=== PATIENT | female | born 1960 | race Caucasian/White ===

== ENCOUNTER 2018-09-02 16:14 | Inpatient (IN) | payer MEDICAID ==
[~2018-09-02] VITALS: Ht 157.5 cm; Wt 59.9 kg
[2018-09-02] MEDS ORDERED: KETOROLAC 30MG/ML VIAL IV ONE (16:45)
[2018-09-02 20:18] LABS: BASOPHILS % 0.1 % (0.0-2.0); EOSINOPHILS % 0.9 % (0.0-5.0); HEMATOCRIT. 43.7 % (36.0-48.0); HEMOGLOBIN. 14.9 g/dL (12.0-16.0); LYMPHOCYTES % 27.4 % (20.0-50.0); MEAN CORPUSCULAR HEMOGLOBIN 29.1 pg (28.0-32.0); MEAN CORPUSCULAR VOLUME 85.5 fL (81.0-99.0); MEAN PLATELET VOLUME 10.2 fl (7.4-10.4); NEUTROPHILS % 65.6 % (40.0-76.0); PLATELET 180 x1000/uL (130-400); RED BLOOD CELL COUNT 5.11 mill/uL (4.2-5.4); RED CELL DISTRIBUTION WIDTH 13.8 % (11.6-14.6)
[2018-09-02 20:23] LABS: CHLORIDE 98 mEq/L (98-107); INR 1.2; PROTHROMBIN TIME 11.6 sec (9.1-11.1)
[2018-09-02 22:38] VITALS: BP 126/71
[2018-09-03] MEDS ORDERED: ABIL10 PO (00:07)
[2018-09-03] MEDS ORDERED: TRAZ-212 PO (00:20)
[2018-09-03] MEDS ORDERED: GABA-529 PO (00:20)
[2018-09-03] MEDS ORDERED: HALO10TA13 PO (00:20)
[2018-09-03] MEDS ORDERED: ASPI-1159 PO (00:20)
[2018-09-03] MEDS ORDERED: RIVA20TA PO (00:20)
[2018-09-03] MEDS ORDERED: SERT-112 PO (00:20)
[2018-09-03] MEDS ORDERED: ATOR10TA69 PO (00:20)
[2018-09-03] MEDS ORDERED: METF-415 PO (00:20)
[2018-09-03] MEDS ORDERED: LORA1TAB PO (00:20)
[2018-09-03] MEDS ORDERED: SITA100T11 PO (00:20)
[2018-09-03] MEDS: BLOOD SUGAR DIAGNOSTIC STRIP TEST SCH ×4 (07:48→21:02)
[2018-09-03 08:00] VITALS: BP 117/58
[2018-09-03] MEDS: ASPIRIN 81MG TABLET PO SCH (08:19)
[2018-09-03] MEDS: LINAGLIPTIN 5MG TABLET PO SCH (08:19)
[2018-09-03] MEDS: METFORMIN HCL 500MG TABLET PO SCH ×2 (08:19→17:04)
[2018-09-03] MEDS: SERTRALINE HCL 100MG TABLET PO SCH (08:19)
[2018-09-03] MEDS: GABAPENTIN 100MG CAPSULE PO SCH ×3 (08:19→17:04)
[2018-09-03] MEDS: LORAZEPAM 1MG TABLET PO SCH ×2 (08:19→17:04)
[2018-09-03] MEDS ORDERED: MEDICATION NOT ON FORMULARY EA (Sitagliptin Phosphate (Januvia) 100 MG) PO SCH (09:00)
[2018-09-03] MEDS ORDERED: MEDICATION NOT ON FORMULARY EA (Lorazepam 1 MG) PO SCH (09:00)
[2018-09-03] MEDS ORDERED: MEDICATION NOT ON FORMULARY EA (Gabapentin 100 MG) PO SCH (09:00)
[2018-09-03] MEDS ORDERED: MORPHINE SULFATE 4 MG/ML CPJ (NOT FOR IM USE) IV PRN (10:00)
[2018-09-03] MEDS: HYDROCODONE/ACETAMINOPHEN 5/325MG TABLET PO PRN (10:44)
[2018-09-03 12:00] VITALS: BP 102/50
[2018-09-03 16:00] VITALS: BP 101/49
[2018-09-03 20:00] VITALS: BP 122/54
[2018-09-03] MEDS: ATORVASTATIN CALCIUM 10MG TABLET PO SCH (20:59)
[2018-09-03] MEDS: HALOPERIDOL 5MG TABLET PO SCH (20:59)
[2018-09-03] MEDS ORDERED: MEDICATION NOT ON FORMULARY EA (Haloperidol 10 MG) PO SCH (21:00)
[2018-09-03] MEDS ORDERED: MEDICATION NOT ON FORMULARY EA (Trazodone Hcl 50 MG) PO SCH (21:00)
[2018-09-03] MEDS: ARIPIPRAZOLE 10MG TABLET PO SCH (21:00)
[2018-09-03] MEDS: TRAZODONE HCL 50MG TABLET PO SCH (21:00)
[2018-09-04] VITALS: BP 118/52
[2018-09-04 04:00] VITALS: BP 130/61
[2018-09-04] MEDS: HYDROCODONE/ACETAMINOPHEN 5/325MG TABLET PO PRN (05:33)
[2018-09-04] MEDS: BLOOD SUGAR DIAGNOSTIC STRIP TEST SCH ×4 (06:51→21:50)
[2018-09-04 08:00] VITALS: BP 111/52
[2018-09-04 08:03] LABS: BASOPHILS % 0.2 % (0.0-2.0); EOSINOPHILS % 1.5 % (0.0-5.0); HEMATOCRIT. 37.6 % (36.0-48.0); HEMOGLOBIN. 12.8 g/dL (12.0-16.0); LYMPHOCYTES % 25.1 % (20.0-50.0); MEAN CORPUSCULAR HEMOGLOBIN 28.9 pg (28.0-32.0); MEAN CORPUSCULAR VOLUME 85.2 fL (81.0-99.0); MEAN PLATELET VOLUME 9.7 fl (7.4-10.4); MONOCYTES % 7.6 % (2.0-8.0); NEUTROPHILS % 65.6 % (40.0-76.0); PLATELET 148 x1000/uL (130-400); RED BLOOD CELL COUNT 4.41 mill/uL (4.2-5.4); RED CELL DISTRIBUTION WIDTH 13.5 % (11.6-14.6)
[2018-09-04] MEDS: LORAZEPAM 1MG TABLET PO SCH ×2 (08:35→16:04)
[2018-09-04] MEDS: GABAPENTIN 100MG CAPSULE PO SCH ×3 (08:35→17:42)
[2018-09-04] MEDS: SERTRALINE HCL 100MG TABLET PO SCH (08:35)
[2018-09-04] MEDS: ASPIRIN 81MG TABLET PO SCH (08:35)
[2018-09-04] MEDS: LINAGLIPTIN 5MG TABLET PO SCH (08:35)
[2018-09-04] MEDS: METFORMIN HCL 500MG TABLET PO SCH ×2 (08:35→17:42)
[2018-09-04 08:39] LABS: CHLORIDE 103 mEq/L (98-107)
[2018-09-04 12:00] VITALS: BP 110/63
[2018-09-04 16:00] VITALS: BP 113/64
[2018-09-04 20:00] VITALS: BP 112/51
[2018-09-04] MEDS: ARIPIPRAZOLE 10MG TABLET PO SCH (21:35)
[2018-09-04] MEDS: ATORVASTATIN CALCIUM 10MG TABLET PO SCH (21:35)
[2018-09-04] MEDS: HALOPERIDOL 5MG TABLET PO SCH (21:35)
[2018-09-04] MEDS: TRAZODONE HCL 50MG TABLET PO SCH (21:35)
[2018-09-05] VITALS: BP 104/55
[2018-09-05 04:00] VITALS: BP 105/50
[2018-09-05] MEDS: BLOOD SUGAR DIAGNOSTIC STRIP TEST SCH ×4 (06:31→21:00)
[2018-09-05 08:00] VITALS: BP 116/55
[2018-09-05] MEDS: METFORMIN HCL 500MG TABLET PO SCH ×2 (09:09→17:08)
[2018-09-05] MEDS: LORAZEPAM 1MG TABLET PO SCH ×2 (09:10→17:08)
[2018-09-05] MEDS: ASPIRIN 81MG TABLET PO SCH (09:10)
[2018-09-05] MEDS: GABAPENTIN 100MG CAPSULE PO SCH ×3 (09:10→17:08)
[2018-09-05] MEDS: LINAGLIPTIN 5MG TABLET PO SCH (09:10)
[2018-09-05] MEDS: SERTRALINE HCL 100MG TABLET PO SCH (09:14)
[2018-09-05 12:00] VITALS: BP 114/48
[2018-09-05 16:00] VITALS: BP 116/45
[2018-09-05] MEDS: HYDROCODONE/ACETAMINOPHEN 5/325MG TABLET PO PRN (18:35)
[2018-09-05 20:00] VITALS: BP 117/55
[2018-09-05] MEDS: ARIPIPRAZOLE 10MG TABLET PO SCH (20:55)
[2018-09-05] MEDS: ATORVASTATIN CALCIUM 10MG TABLET PO SCH (20:55)
[2018-09-05] MEDS: TRAZODONE HCL 50MG TABLET PO SCH (20:56)
[2018-09-05] MEDS: HALOPERIDOL 5MG TABLET PO SCH (20:56)
[2018-09-06] VITALS: BP 104/57
[2018-09-06 04:00] VITALS: BP 109/46
[2018-09-06] MEDS: BLOOD SUGAR DIAGNOSTIC STRIP TEST SCH ×4 (06:55→21:00)
[2018-09-06 08:00] VITALS: BP 106/37
[2018-09-06] MEDS: LINAGLIPTIN 5MG TABLET PO SCH (08:25)
[2018-09-06] MEDS: GABAPENTIN 100MG CAPSULE PO SCH ×3 (08:25→17:57)
[2018-09-06] MEDS: SERTRALINE HCL 100MG TABLET PO SCH (08:25)
[2018-09-06] MEDS: LORAZEPAM 1MG TABLET PO SCH ×2 (08:26→17:58)
[2018-09-06] MEDS: TRAZODONE HCL 50MG TABLET PO SCH (08:26)
[2018-09-06] MEDS: ASPIRIN 81MG TABLET PO SCH (08:54)
[2018-09-06] MEDS: METFORMIN HCL 500MG TABLET PO SCH ×2 (09:21→18:21)
[2018-09-06 12:00] VITALS: BP 149/64
[2018-09-06 12:07] LABS: BASOPHILS % 0.2 % (0.0-2.0); EOSINOPHILS % 2.6 % (0.0-5.0); HEMATOCRIT. 40.3 % (36.0-48.0); HEMOGLOBIN. 13.8 g/dL (12.0-16.0); LYMPHOCYTES % 24.5 % (20.0-50.0); MEAN CORPUSCULAR HEMOGLOBIN 28.8 pg (28.0-32.0); MEAN CORPUSCULAR VOLUME 84.5 fL (81.0-99.0); MEAN PLATELET VOLUME 9.4 fl (7.4-10.4); MONOCYTES % 5.4 % (2.0-8.0); NEUTROPHILS % 67.3 % (40.0-76.0); PLATELET 171 x1000/uL (130-400); RED BLOOD CELL COUNT 4.77 mill/uL (4.2-5.4); RED CELL DISTRIBUTION WIDTH 13.7 % (11.6-14.6)
[2018-09-06 12:44] LABS: CHLORIDE 102 mEq/L (98-107)
[2018-09-06 16:00] VITALS: BP 115/56
[2018-09-06] MEDS: HYDROCODONE/ACETAMINOPHEN 5/325MG TABLET PO PRN (17:01)
[2018-09-06 20:00] VITALS: BP 114/58
[2018-09-06] MEDS: ARIPIPRAZOLE 10MG TABLET PO SCH (20:59)
[2018-09-06] MEDS: HALOPERIDOL 5MG TABLET PO SCH (20:59)
[2018-09-06] MEDS: ATORVASTATIN CALCIUM 10MG TABLET PO SCH (20:59)
[2018-09-07] VITALS: BP 110/54
[2018-09-07 04:00] VITALS: BP 114/62
[2018-09-07] MEDS: BLOOD SUGAR DIAGNOSTIC STRIP TEST SCH ×4 (07:20→21:00)
[2018-09-07 08:00] VITALS: BP 107/61
[2018-09-07] MEDS: LORAZEPAM 1MG TABLET PO SCH ×2 (09:00→18:55)
[2018-09-07] MEDS: LINAGLIPTIN 5MG TABLET PO SCH (11:45)
[2018-09-07] MEDS: GABAPENTIN 100MG CAPSULE PO SCH ×3 (11:45→18:55)
[2018-09-07] MEDS: SERTRALINE HCL 100MG TABLET PO SCH (11:45)
[2018-09-07] MEDS: METFORMIN HCL 500MG TABLET PO SCH ×2 (11:45→18:55)
[2018-09-07] MEDS: ASPIRIN 81MG TABLET PO SCH (11:46)
[2018-09-07 12:00] VITALS: BP 110/57
[2018-09-07 16:00] VITALS: BP 114/54
[2018-09-07 20:00] VITALS: BP 119/61
[2018-09-07] MEDS: TRAZODONE HCL 50MG TABLET PO SCH (22:02)
[2018-09-07] MEDS: ATORVASTATIN CALCIUM 10MG TABLET PO SCH (22:02)
[2018-09-07] MEDS: ARIPIPRAZOLE 10MG TABLET PO SCH (22:02)
[2018-09-07] MEDS: HYDROCODONE/ACETAMINOPHEN 5/325MG TABLET PO PRN (22:08)
[2018-09-07] MEDS: HALOPERIDOL 5MG TABLET PO SCH (22:08)
[2018-09-08] VITALS: BP 116/59
[2018-09-08 04:00] VITALS: BP 109/63
[2018-09-08] MEDS: BLOOD SUGAR DIAGNOSTIC STRIP TEST SCH ×4 (07:39→20:09)
[2018-09-08 08:00] VITALS: BP 112/54
[2018-09-08] MEDS: METFORMIN HCL 500MG TABLET PO SCH ×2 (08:14→16:49)
[2018-09-08] MEDS: SERTRALINE HCL 100MG TABLET PO SCH (08:29)
[2018-09-08] MEDS: GABAPENTIN 100MG CAPSULE PO SCH ×3 (08:29→16:48)
[2018-09-08] MEDS: LORAZEPAM 1MG TABLET PO SCH (08:29)
[2018-09-08] MEDS: ASPIRIN 81MG TABLET PO SCH (08:29)
[2018-09-08] MEDS: LINAGLIPTIN 5MG TABLET PO SCH (08:30)
[2018-09-08 12:00] VITALS: BP 103/62
[2018-09-08] MEDS ORDERED: HYDROCODONE/ACETAMINOPHEN 5/325MG TABLET PO PRN (12:30)
[2018-09-08 16:00] VITALS: BP 117/50
[2018-09-08 20:00] VITALS: BP 115/58
[2018-09-08] MEDS: ARIPIPRAZOLE 10MG TABLET PO SCH (20:01)
[2018-09-08] MEDS: ATORVASTATIN CALCIUM 10MG TABLET PO SCH (20:01)
[2018-09-08] MEDS: TRAZODONE HCL 50MG TABLET PO SCH (20:01)
[2018-09-08] MEDS: HALOPERIDOL 5MG TABLET PO SCH (21:29)
[2018-09-09] VITALS: BP 110/54
[2018-09-09 04:00] VITALS: BP 111/50
[2018-09-09] MEDS: BLOOD SUGAR DIAGNOSTIC STRIP TEST SCH ×4 (06:44→20:24)
[2018-09-09 08:00] VITALS: BP 115/50
[2018-09-09] MEDS: LINAGLIPTIN 5MG TABLET PO SCH (09:10)
[2018-09-09] MEDS: ASPIRIN 81MG TABLET PO SCH (09:10)
[2018-09-09] MEDS: GABAPENTIN 100MG CAPSULE PO SCH ×3 (09:10→18:35)
[2018-09-09] MEDS: METFORMIN HCL 500MG TABLET PO SCH ×2 (09:10→18:35)
[2018-09-09] MEDS: SERTRALINE HCL 100MG TABLET PO SCH (09:12)
[2018-09-09 12:00] VITALS: BP 127/49
[2018-09-09] MEDS ORDERED: MORPHINE SULFATE 4 MG/ML CPJ (NOT FOR IM USE) IV NR (13:15)
[2018-09-09 16:00] VITALS: BP 122/50
[2018-09-09 16:11] LABS: BASOPHILS % 0.2 % (0.0-2.0); EOSINOPHILS % 2.2 % (0.0-5.0); HEMATOCRIT. 37.9 % (36.0-48.0); HEMOGLOBIN. 12.9 g/dL (12.0-16.0); LYMPHOCYTES % 28.7 % (20.0-50.0); MEAN CORPUSCULAR HEMOGLOBIN 28.9 pg (28.0-32.0); MEAN CORPUSCULAR VOLUME 84.9 fL (81.0-99.0); MEAN PLATELET VOLUME 9.7 fl (7.4-10.4); NEUTROPHILS % 62.9 % (40.0-76.0); PLATELET 184 x1000/uL (130-400); RED BLOOD CELL COUNT 4.46 mill/uL (4.2-5.4); RED CELL DISTRIBUTION WIDTH 13.8 % (11.6-14.6)
[2018-09-09 16:14] LABS: CHLORIDE 101 mEq/L (98-107)
[2018-09-09 20:00] VITALS: BP 120/52
[2018-09-09] MEDS: TRAZODONE HCL 50MG TABLET PO SCH (20:25)
[2018-09-09] MEDS: HALOPERIDOL 5MG TABLET PO SCH (20:25)
[2018-09-09] MEDS: ATORVASTATIN CALCIUM 10MG TABLET PO SCH (20:25)
[2018-09-09] MEDS: ARIPIPRAZOLE 10MG TABLET PO SCH (20:48)
[2018-09-10] VITALS: BP 111/45
[2018-09-10 04:00] VITALS: BP 124/51
[2018-09-10] MEDS: BLOOD SUGAR DIAGNOSTIC STRIP TEST SCH ×2 (05:44→12:00)
[2018-09-10] MEDS: METFORMIN HCL 500MG TABLET PO SCH (07:50)
[2018-09-10 08:00] VITALS: BP 101/49
[2018-09-10] MEDS: ASPIRIN 81MG TABLET PO SCH (08:50)
[2018-09-10] MEDS: LINAGLIPTIN 5MG TABLET PO SCH (08:50)
[2018-09-10] MEDS: GABAPENTIN 100MG CAPSULE PO SCH ×2 (08:50→12:00)
[2018-09-10] MEDS: SERTRALINE HCL 100MG TABLET PO SCH (08:50)
[2018-09-10 10:30] VITALS: BP 101/49
== END 2018-09-10 13:05 | DRG 342 ==
LOC: ER 16:19 → 6EST 19:45 → ENRESERV 20:18 → CANRESERV 20:18
PROVIDERS: ADMIT Internal Medicine; ATTEND Internal Medicine
DX: S82.52XA Displaced fracture of medial malleolus of left tibia, initial encounter for closed fracture (principal); F20.9 Schizophrenia, unspecified; E11.9 Type 2 diabetes mellitus without complications; F31.9 Bipolar disorder, unspecified; M94.0 Chondrocostal junction syndrome [Tietze]; W01.0XXA Fall on same level from slipping, tripping and stumbling without subsequent striking against object, initial encounter; Y93.89 Activity, other specified; Y92.89 Other specified places as the place of occurrence of the external cause; Y99.8 Other external cause status
CPT/HCPCS: 36415; 70551; 71045; 73590; 73610; 73630; 80048; 82962; 83036; 84484; 93005; 93306; 96374; 97163; 97166; 97530; 97535; 99285; A6261; J1630; J1885; J2270

== ENCOUNTER 2018-09-25 16:19 | Inpatient (IN) | payer MEDICAID ==
[~2018-09-25] VITALS: Ht 162.6 cm; Wt 56.2 kg
[~2018-09-25 16:19] MED LIST: ABIL10 PO; ASPI-1159 PO; ATOR10TA69 PO; GABA-529 PO; HALO10TA13 PO; LORA1TAB PO; METF-415 PO; RIVA20TA PO; SERT-112 PO; SITA100T11 PO; TRAZ-212 PO
[2018-09-25 19:16] LABS: BASOPHILS % 0.5 % (0.0-2.0); EOSINOPHILS % 1.1 % (0.0-5.0); HEMATOCRIT. 41.4 % (36.0-48.0); HEMOGLOBIN. 13.8 g/dL (12.0-16.0); LYMPHOCYTES % 23.6 % (20.0-50.0); MEAN CORPUSCULAR HEMOGLOBIN 28.4 pg (28.0-32.0); MEAN CORPUSCULAR VOLUME 84.9 fL (81.0-99.0); MEAN PLATELET VOLUME 9.8 fl (7.4-10.4); MONOCYTES % 5.6 % (2.0-8.0); NEUTROPHILS % 69.2 % (40.0-76.0); PLATELET 213 x1000/uL (130-400); RED BLOOD CELL COUNT 4.88 mill/uL (4.2-5.4); RED CELL DISTRIBUTION WIDTH 13.7 % (11.6-14.6)
[2018-09-25 19:23] LABS: CHLORIDE 103 mEq/L (98-107)
[2018-09-25 19:28] LABS: PARTIAL THROMBOPLASTIN TIME 23.6 sec (23.4-31.0); PROTHROMBIN TIME 10.5 sec (9.1-11.1)
[2018-09-25 19:30] LABS: HCG SCREEN NEGATIVE
[2018-09-25 20:24] LABS: CLARITY URINE CLEAR (CLEAR); COLOR URINE YELLOW (YELLOW); KETONES URINE NEGATIVE (NEGATIVE); LEUKOCYTE ESTERASE URINE TRACE (NEGATIVE); NITRITE URINE NEGATIVE (NEGATIVE); OCCULT BLOOD URINE NEGATIVE (NEGATIVE); PROTEIN URINE NEGATIVE (NEGATIVE); SPECIFIC GRAVITY URINE 1.008 (1.005-1.030); UROBILINOGEN URINE 0.2 E.U./dL (0.2-1.0)
[2018-09-25] MEDS ORDERED: IOHEXOL-350 100 ML BOTTLE ONE (21:54)
[2018-09-26 02:00] VITALS: BP 133/50
[2018-09-26 04:00] VITALS: BP 118/56
[2018-09-26] MEDS: HYDROCODONE/ACETAMINOPHEN 5/325MG TABLET PO PRN (07:06)
[2018-09-26 08:00] VITALS: BP 117/58
[2018-09-26] MEDS ORDERED: DEXTROSE 50% WATER 50ML SYRINGE IV PRN (08:00)
[2018-09-26] MEDS: ASPIRIN 81MG TABLET PO SCH (08:10)
[2018-09-26] MEDS: ARIPIPRAZOLE 10MG TABLET PO SCH (08:10)
[2018-09-26] MEDS: LORAZEPAM 1MG TABLET PO SCH ×2 (08:10→16:17)
[2018-09-26] MEDS: ONDANSETRON HCL 4MG/2ML INJ IV PRN (08:10)
[2018-09-26] MEDS: GABAPENTIN 100MG CAPSULE PO SCH ×3 (08:11→16:17)
[2018-09-26] MEDS ORDERED: MEDICATION NOT ON FORMULARY EA (Lorazepam 1 MG) PO SCH (09:00)
[2018-09-26] MEDS ORDERED: MEDICATION NOT ON FORMULARY EA (Gabapentin 100 MG) PO SCH (09:00)
[2018-09-26] MEDS: METFORMIN HCL 850MG TABLET PO SCH (09:20)
[2018-09-26] MEDS: SERTRALINE HCL 100MG TABLET PO SCH (09:22)
[2018-09-26] MEDS: BLOOD SUGAR DIAGNOSTIC STRIP TEST SCH ×3 (11:18→20:41)
[2018-09-26 12:00] VITALS: BP 125/54
[2018-09-26] MEDS: INSULIN LISPRO 100 UNITS/ML SUBCUT SCH ×3 (12:11→20:34)
[2018-09-26 12:18] LABS: BASOPHILS % 0.3 % (0.0-2.0); EOSINOPHILS % 1.9 % (0.0-5.0); HEMOGLOBIN. 14.1 g/dL (12.0-16.0); LYMPHOCYTES % 30.1 % (20.0-50.0); MEAN CORPUSCULAR HEMOGLOBIN 28.8 pg (28.0-32.0); MEAN CORPUSCULAR VOLUME 85.7 fL (81.0-99.0); MEAN PLATELET VOLUME 9.3 fl (7.4-10.4); MONOCYTES % 7.7 % (2.0-8.0); PLATELET 192 x1000/uL (130-400)
[2018-09-26 12:40] LABS: CHLORIDE 103 mEq/L (98-107)
[2018-09-26 16:00] VITALS: BP 123/74
[2018-09-26] MEDS: RIVAROXABAN 20 MG TABLET PO SCH (16:17)
[2018-09-26 20:00] VITALS: BP 102/48
[2018-09-26] MEDS: HALOPERIDOL 5MG TABLET PO SCH (20:41)
[2018-09-26] MEDS: TRAZODONE HCL 50MG TABLET PO SCH (20:42)
[2018-09-26] MEDS: ATORVASTATIN CALCIUM 10MG TABLET PO SCH (20:42)
[2018-09-26] MEDS ORDERED: MEDICATION NOT ON FORMULARY EA (Trazodone Hcl 50 MG) PO SCH (21:00)
[2018-09-26] MEDS ORDERED: MEDICATION NOT ON FORMULARY EA (Haloperidol 10 MG) PO SCH (21:00)
[2018-09-27] VITALS: BP 110/49
[2018-09-27 04:00] VITALS: BP 108/60
[2018-09-27] MEDS: BLOOD SUGAR DIAGNOSTIC STRIP TEST SCH ×4 (06:12→20:35)
[2018-09-27] MEDS: INSULIN LISPRO 100 UNITS/ML SUBCUT SCH ×4 (06:12→21:21)
[2018-09-27 08:00] VITALS: BP 107/63
[2018-09-27] MEDS: SERTRALINE HCL 100MG TABLET PO SCH (09:15)
[2018-09-27] MEDS: METFORMIN HCL 850MG TABLET PO SCH (09:15)
[2018-09-27] MEDS: ASPIRIN 81MG TABLET PO SCH (09:15)
[2018-09-27] MEDS: LORAZEPAM 1MG TABLET PO SCH ×2 (09:15→18:03)
[2018-09-27] MEDS: ARIPIPRAZOLE 10MG TABLET PO SCH (09:15)
[2018-09-27] MEDS: GABAPENTIN 100MG CAPSULE PO SCH ×3 (09:15→18:03)
[2018-09-27 12:00] VITALS: BP 110/65
[2018-09-27] MEDS: RIVAROXABAN 20 MG TABLET PO SCH (18:03)
[2018-09-27 20:00] VITALS: BP 120/42
[2018-09-27] MEDS: ATORVASTATIN CALCIUM 10MG TABLET PO SCH (20:34)
[2018-09-27] MEDS: TRAZODONE HCL 50MG TABLET PO SCH (20:34)
[2018-09-27] MEDS: HALOPERIDOL 5MG TABLET PO SCH (20:34)
[2018-09-28] VITALS: BP 116/51
[2018-09-28 04:00] VITALS: BP 91/43
[2018-09-28] MEDS: BLOOD SUGAR DIAGNOSTIC STRIP TEST SCH ×4 (06:44→21:18)
[2018-09-28 07:42] LABS: BASOPHILS % 0.3 % (0.0-2.0); EOSINOPHILS % 4.2 % (0.0-5.0); HEMATOCRIT. 37.3 % (36.0-48.0); HEMOGLOBIN. 12.5 g/dL (12.0-16.0); LYMPHOCYTES % 32.4 % (20.0-50.0); MEAN CORPUSCULAR HEMOGLOBIN 28.7 pg (28.0-32.0); MEAN CORPUSCULAR VOLUME 85.8 fL (81.0-99.0); MEAN PLATELET VOLUME 9.4 fl (7.4-10.4); MONOCYTES % 6.9 % (2.0-8.0); NEUTROPHILS % 56.2 % (40.0-76.0); PLATELET 165 x1000/uL (130-400); RED BLOOD CELL COUNT 4.35 mill/uL (4.2-5.4); RED CELL DISTRIBUTION WIDTH 13.8 % (11.6-14.6)
[2018-09-28 08:00] VITALS: BP 111/53
[2018-09-28 09:20] LABS: CHLORIDE 105 mEq/L (98-107)
[2018-09-28] MEDS: METFORMIN HCL 850MG TABLET PO SCH (09:44)
[2018-09-28] MEDS: GABAPENTIN 100MG CAPSULE PO SCH ×3 (09:44→17:48)
[2018-09-28] MEDS: ARIPIPRAZOLE 10MG TABLET PO SCH (09:45)
[2018-09-28] MEDS: LORAZEPAM 1MG TABLET PO SCH ×2 (09:45→17:48)
[2018-09-28] MEDS: SERTRALINE HCL 100MG TABLET PO SCH (09:45)
[2018-09-28] MEDS: ASPIRIN 81MG TABLET PO SCH (09:45)
[2018-09-28] MEDS: INSULIN LISPRO 100 UNITS/ML SUBCUT SCH ×3 (12:09→21:18)
[2018-09-28] MEDS: RIVAROXABAN 20 MG TABLET PO SCH (17:48)
[2018-09-28] MEDS: ATORVASTATIN CALCIUM 10MG TABLET PO SCH (20:47)
[2018-09-28] MEDS: TRAZODONE HCL 50MG TABLET PO SCH (20:47)
[2018-09-28] MEDS: HALOPERIDOL 5MG TABLET PO SCH (20:47)
[2018-09-29] MEDS: BLOOD SUGAR DIAGNOSTIC STRIP TEST SCH ×4 (06:21→21:00)
[2018-09-29] MEDS: INSULIN LISPRO 100 UNITS/ML SUBCUT SCH ×4 (06:30→22:23)
[2018-09-29 08:00] VITALS: BP 131/58
[2018-09-29] MEDS: GABAPENTIN 100MG CAPSULE PO SCH ×3 (09:15→17:19)
[2018-09-29] MEDS: ASPIRIN 81MG TABLET PO SCH (09:15)
[2018-09-29] MEDS: LORAZEPAM 1MG TABLET PO SCH ×2 (09:15→17:19)
[2018-09-29] MEDS: SERTRALINE HCL 100MG TABLET PO SCH (09:15)
[2018-09-29] MEDS: METFORMIN HCL 850MG TABLET PO SCH (09:15)
[2018-09-29] MEDS: ARIPIPRAZOLE 10MG TABLET PO SCH (09:15)
[2018-09-29 12:00] VITALS: BP 144/66
[2018-09-29 16:00] VITALS: BP 114/65
[2018-09-29] MEDS: RIVAROXABAN 20 MG TABLET PO SCH (17:19)
[2018-09-29] MEDS: KETOROLAC 30MG/ML VIAL IV PRN (17:57)
[2018-09-29] MEDS: HYDROCODONE/ACETAMINOPHEN 5/325MG TABLET PO PRN (19:50)
[2018-09-29 20:00] VITALS: BP 109/65
[2018-09-29] MEDS: TRAZODONE HCL 50MG TABLET PO SCH (20:27)
[2018-09-29] MEDS: HALOPERIDOL 5MG TABLET PO SCH (20:27)
[2018-09-29] MEDS: ATORVASTATIN CALCIUM 10MG TABLET PO SCH (20:27)
[2018-09-29] MEDS: ONDANSETRON HCL 4MG/2ML INJ IV PRN (20:27)
[2018-09-29 20:36] VITALS: BP 152/77
[2018-09-30] VITALS: BP 105/48
[2018-09-30 04:00] VITALS: BP 113/49
[2018-09-30] MEDS: BLOOD SUGAR DIAGNOSTIC STRIP TEST SCH ×4 (07:01→20:31)
[2018-09-30] MEDS: INSULIN LISPRO 100 UNITS/ML SUBCUT SCH ×4 (07:02→20:36)
[2018-09-30 08:00] VITALS: BP 106/52
[2018-09-30] MEDS: LORAZEPAM 1MG TABLET PO SCH ×2 (08:59→17:42)
[2018-09-30] MEDS: GABAPENTIN 100MG CAPSULE PO SCH ×3 (08:59→18:07)
[2018-09-30] MEDS: SERTRALINE HCL 100MG TABLET PO SCH (08:59)
[2018-09-30] MEDS: ASPIRIN 81MG TABLET PO SCH (08:59)
[2018-09-30] MEDS: ARIPIPRAZOLE 10MG TABLET PO SCH (08:59)
[2018-09-30] MEDS: METFORMIN HCL 850MG TABLET PO SCH (10:03)
[2018-09-30 12:16] VITALS: BP 95/26
[2018-09-30 16:14] VITALS: BP 110/38
[2018-09-30] MEDS: RIVAROXABAN 20 MG TABLET PO SCH (17:42)
[2018-09-30 20:00] VITALS: BP 113/43
[2018-09-30] MEDS: ATORVASTATIN CALCIUM 10MG TABLET PO SCH (20:36)
[2018-09-30] MEDS: TRAZODONE HCL 50MG TABLET PO SCH (20:36)
[2018-09-30] MEDS: HALOPERIDOL 5MG TABLET PO SCH (20:36)
[2018-09-30] MEDS: ACETAMINOPHEN 325MG TABLET PO PRN (20:40)
[2018-10-01] VITALS: BP 99/52
[2018-10-01 04:00] VITALS: BP 94/50
[2018-10-01] MEDS: INSULIN LISPRO 100 UNITS/ML SUBCUT SCH ×4 (06:19→20:19)
[2018-10-01] MEDS: BLOOD SUGAR DIAGNOSTIC STRIP TEST SCH ×4 (06:19→20:00)
[2018-10-01 08:00] VITALS: BP 108/66
[2018-10-01] MEDS: ARIPIPRAZOLE 10MG TABLET PO SCH (09:13)
[2018-10-01] MEDS: METFORMIN HCL 850MG TABLET PO SCH (09:13)
[2018-10-01] MEDS: SERTRALINE HCL 100MG TABLET PO SCH (09:13)
[2018-10-01] MEDS: GABAPENTIN 100MG CAPSULE PO SCH ×3 (09:14→17:40)
[2018-10-01] MEDS: ASPIRIN 81MG TABLET PO SCH (09:14)
[2018-10-01] MEDS: LORAZEPAM 1MG TABLET PO SCH (09:14)
[2018-10-01 12:00] VITALS: BP 100/56
[2018-10-01] MEDS: ACETAMINOPHEN 325MG TABLET PO PRN (14:24)
[2018-10-01 16:00] VITALS: BP 100/61
[2018-10-01] MEDS: RIVAROXABAN 20 MG TABLET PO SCH (17:40)
[2018-10-01 20:00] VITALS: BP 113/49
[2018-10-01] MEDS: HALOPERIDOL 5MG TABLET PO SCH (20:15)
[2018-10-01] MEDS: ATORVASTATIN CALCIUM 10MG TABLET PO SCH (20:15)
[2018-10-01] MEDS: TRAZODONE HCL 50MG TABLET PO SCH (20:16)
[2018-10-02] VITALS: BP 101/55
[2018-10-02 04:00] VITALS: BP 106/57
[2018-10-02] MEDS: BLOOD SUGAR DIAGNOSTIC STRIP TEST SCH ×4 (05:30→21:00)
[2018-10-02] MEDS: INSULIN LISPRO 100 UNITS/ML SUBCUT SCH ×4 (05:41→22:28)
[2018-10-02] MEDS: ARIPIPRAZOLE 10MG TABLET PO SCH (09:21)
[2018-10-02] MEDS: ASPIRIN 81MG TABLET PO SCH (09:21)
[2018-10-02] MEDS: SERTRALINE HCL 100MG TABLET PO SCH (09:21)
[2018-10-02] MEDS: GABAPENTIN 100MG CAPSULE PO SCH ×3 (09:21→17:44)
[2018-10-02] MEDS: METFORMIN HCL 850MG TABLET PO SCH (09:21)
[2018-10-02 12:00] VITALS: BP 113/77
[2018-10-02] MEDS: ONDANSETRON HCL 4MG/2ML INJ IV PRN (13:15)
[2018-10-02] MEDS: KETOROLAC 30MG/ML VIAL IV PRN (13:15)
[2018-10-02] MEDS: ALPRAZOLAM 0.5 MG TABLET PO PRN (17:44)
[2018-10-02] MEDS: RIVAROXABAN 20 MG TABLET PO SCH (17:44)
[2018-10-02 20:09] VITALS: BP 100/59
[2018-10-02] MEDS: ATORVASTATIN CALCIUM 10MG TABLET PO SCH (22:19)
[2018-10-02] MEDS: HALOPERIDOL 5MG TABLET PO SCH (22:20)
[2018-10-02] MEDS: TRAZODONE HCL 50MG TABLET PO SCH (22:20)
[2018-10-02 23:49] VITALS: BP 105/59
[2018-10-03 04:00] VITALS: BP 99/59
[2018-10-03] MEDS: BLOOD SUGAR DIAGNOSTIC STRIP TEST SCH ×4 (07:03→21:16)
[2018-10-03] MEDS: INSULIN LISPRO 100 UNITS/ML SUBCUT SCH ×4 (07:03→21:27)
[2018-10-03 08:00] VITALS: BP 104/40
[2018-10-03] MEDS: ARIPIPRAZOLE 10MG TABLET PO SCH (08:32)
[2018-10-03] MEDS: GABAPENTIN 100MG CAPSULE PO SCH ×3 (08:32→17:10)
[2018-10-03] MEDS: METFORMIN HCL 850MG TABLET PO SCH (08:32)
[2018-10-03] MEDS: ASPIRIN 81MG TABLET PO SCH (08:32)
[2018-10-03] MEDS: SERTRALINE HCL 100MG TABLET PO SCH (08:32)
[2018-10-03] MEDS: ONDANSETRON HCL 4MG/2ML INJ IV PRN (09:49)
[2018-10-03 12:00] VITALS: BP 111/43
[2018-10-03] MEDS: ALPRAZOLAM 0.5 MG TABLET PO PRN (12:16)
[2018-10-03] MEDS: ACETAMINOPHEN 325MG TABLET PO PRN ×2 (13:10→21:56)
[2018-10-03 16:00] VITALS: BP 98/49
[2018-10-03] MEDS: RIVAROXABAN 20 MG TABLET PO SCH (17:10)
[2018-10-03 20:03] VITALS: BP 101/66
[2018-10-03] MEDS: TRAZODONE HCL 50MG TABLET PO SCH (20:25)
[2018-10-03] MEDS: ATORVASTATIN CALCIUM 10MG TABLET PO SCH (20:25)
[2018-10-03] MEDS: HALOPERIDOL 5MG TABLET PO SCH (20:28)
[2018-10-04] VITALS: BP 105/60
[2018-10-04 04:00] VITALS: BP 118/77
[2018-10-04] MEDS: ALPRAZOLAM 0.5 MG TABLET PO PRN ×2 (04:36→15:39)
[2018-10-04] MEDS: BLOOD SUGAR DIAGNOSTIC STRIP TEST SCH ×4 (06:25→21:00)
[2018-10-04] MEDS: INSULIN LISPRO 100 UNITS/ML SUBCUT SCH ×4 (06:46→23:32)
[2018-10-04 08:00] VITALS: BP 120/50
[2018-10-04] MEDS: METFORMIN HCL 850MG TABLET PO SCH (08:53)
[2018-10-04] MEDS: SERTRALINE HCL 100MG TABLET PO SCH (08:53)
[2018-10-04] MEDS: ARIPIPRAZOLE 10MG TABLET PO SCH (08:53)
[2018-10-04] MEDS: ASPIRIN 81MG TABLET PO SCH (08:53)
[2018-10-04] MEDS: GABAPENTIN 100MG CAPSULE PO SCH ×3 (08:53→16:43)
[2018-10-04 12:00] VITALS: BP 100/53
[2018-10-04] MEDS: RIVAROXABAN 20 MG TABLET PO SCH (16:43)
[2018-10-04 20:00] VITALS: BP 104/45
[2018-10-04] MEDS: HALOPERIDOL 5MG TABLET PO SCH (21:00)
[2018-10-04] MEDS: ATORVASTATIN CALCIUM 10MG TABLET PO SCH (23:23)
[2018-10-04] MEDS: TRAZODONE HCL 50MG TABLET PO SCH (23:23)
[2018-10-05] VITALS: BP 98/54
[2018-10-05 04:00] VITALS: BP 96/54
[2018-10-05] MEDS: INSULIN LISPRO 100 UNITS/ML SUBCUT SCH ×4 (06:10→20:20)
[2018-10-05] MEDS: BLOOD SUGAR DIAGNOSTIC STRIP TEST SCH ×4 (06:10→20:17)
[2018-10-05] MEDS: METFORMIN HCL 850MG TABLET PO SCH (06:10)
[2018-10-05 08:00] VITALS: BP 109/29
[2018-10-05] MEDS: SERTRALINE HCL 100MG TABLET PO SCH (08:57)
[2018-10-05] MEDS: GABAPENTIN 100MG CAPSULE PO SCH ×3 (08:57→17:08)
[2018-10-05] MEDS: ASPIRIN 81MG TABLET PO SCH (08:57)
[2018-10-05] MEDS: ARIPIPRAZOLE 10MG TABLET PO SCH (08:57)
[2018-10-05 12:00] VITALS: BP 106/55
[2018-10-05 16:00] VITALS: BP 105/43
[2018-10-05] MEDS: RIVAROXABAN 20 MG TABLET PO SCH (17:08)
[2018-10-05] MEDS: ALPRAZOLAM 0.5 MG TABLET PO PRN (18:56)
[2018-10-05 20:00] VITALS: BP 111/64
[2018-10-05] MEDS: TRAZODONE HCL 50MG TABLET PO SCH (20:13)
[2018-10-05] MEDS: ATORVASTATIN CALCIUM 10MG TABLET PO SCH (20:13)
[2018-10-05] MEDS: HALOPERIDOL 5MG TABLET PO SCH (20:21)
[2018-10-05] MEDS: ACETAMINOPHEN 325MG TABLET PO PRN (23:56)
[2018-10-06] VITALS: BP 101/48
[2018-10-06] MEDS: BLOOD SUGAR DIAGNOSTIC STRIP TEST SCH ×4 (05:46→20:33)
[2018-10-06] MEDS: INSULIN LISPRO 100 UNITS/ML SUBCUT SCH ×4 (05:54→20:33)
[2018-10-06 06:00] VITALS: BP 96/32
[2018-10-06 07:36] LABS: BASOPHILS % 0.2 % (0.0-2.0); HEMOGLOBIN. 13.9 g/dL (12.0-16.0); MEAN CORPUSCULAR HEMOGLOBIN 29.2 pg (28.0-32.0); MEAN PLATELET VOLUME 9.6 fl (7.4-10.4); MONOCYTES % 6.1 % (2.0-8.0); NEUTROPHILS % 51.7 % (40.0-76.0); PLATELET 178 x1000/uL (130-400); RED BLOOD CELL COUNT 4.76 mill/uL (4.2-5.4); RED CELL DISTRIBUTION WIDTH 13.9 % (11.6-14.6)
[2018-10-06] MEDS: ARIPIPRAZOLE 10MG TABLET PO SCH (07:43)
[2018-10-06] MEDS: METFORMIN HCL 850MG TABLET PO SCH (07:43)
[2018-10-06] MEDS: GABAPENTIN 100MG CAPSULE PO SCH ×3 (07:43→17:02)
[2018-10-06] MEDS: SERTRALINE HCL 100MG TABLET PO SCH (07:44)
[2018-10-06] MEDS: ASPIRIN 81MG TABLET PO SCH (07:44)
[2018-10-06 07:47] LABS: CHLORIDE 105 mEq/L (98-107)
[2018-10-06 08:00] VITALS: BP 96/35
[2018-10-06] MEDS: ALPRAZOLAM 0.5 MG TABLET PO PRN (10:51)
[2018-10-06] MEDS: ACETAMINOPHEN 325MG TABLET PO PRN ×2 (11:30→20:31)
[2018-10-06 16:00] VITALS: BP 116/81
[2018-10-06] MEDS: RIVAROXABAN 20 MG TABLET PO SCH (17:02)
[2018-10-06 20:00] VITALS: BP 113/53
[2018-10-06] MEDS: TRAZODONE HCL 50MG TABLET PO SCH (20:31)
[2018-10-06] MEDS: HALOPERIDOL 5MG TABLET PO SCH (20:31)
[2018-10-06] MEDS: ATORVASTATIN CALCIUM 10MG TABLET PO SCH (20:31)
[2018-10-07] VITALS: BP 114/66
[2018-10-07] MEDS: ACETAMINOPHEN 325MG TABLET PO PRN (03:49)
[2018-10-07 04:00] VITALS: BP 100/77
[2018-10-07] MEDS: BLOOD SUGAR DIAGNOSTIC STRIP TEST SCH ×2 (06:38→12:07)
[2018-10-07] MEDS: INSULIN LISPRO 100 UNITS/ML SUBCUT SCH ×2 (06:41→12:07)
[2018-10-07 08:00] VITALS: BP 125/47
[2018-10-07] MEDS: ARIPIPRAZOLE 10MG TABLET PO SCH (09:23)
[2018-10-07] MEDS: GABAPENTIN 100MG CAPSULE PO SCH ×2 (09:23→13:22)
[2018-10-07] MEDS: ASPIRIN 81MG TABLET PO SCH (09:23)
[2018-10-07] MEDS: METFORMIN HCL 850MG TABLET PO SCH (09:23)
[2018-10-07] MEDS: SERTRALINE HCL 100MG TABLET PO SCH (09:23)
[2018-10-07 12:21] VITALS: BP 122/49
[2018-10-07 12:43] VITALS: BP 125/42
== END 2018-10-07 14:50 | DRG 203 ==
LOC: ER 16:19 → 8WST 22:35 → ENRESERV 23:32
PROVIDERS: ADMIT Internal Medicine; ATTEND Internal Medicine
DX: M94.0 Chondrocostal junction syndrome [Tietze] (principal); I11.0 Hypertensive heart disease with heart failure; F20.9 Schizophrenia, unspecified; I50.9 Heart failure, unspecified; F31.9 Bipolar disorder, unspecified; E11.9 Type 2 diabetes mellitus without complications; F41.9 Anxiety disorder, unspecified; I25.10 Atherosclerotic heart disease of native coronary artery without angina pectoris; S82.52XA Displaced fracture of medial malleolus of left tibia, initial encounter for closed fracture; J44.9 Chronic obstructive pulmonary disease, unspecified; W18.30XA Fall on same level, unspecified, initial encounter; Y93.89 Activity, other specified; Y92.89 Other specified places as the place of occurrence of the external cause; Z87.891 Personal history of nicotine dependence; Y99.8 Other external cause status; Z90.49 Acquired absence of other specified parts of digestive tract
CPT/HCPCS: 36415; 71045; 71275; 80048; 82962; 83880; 84484; 84703; 93005; 93306; 93971; 96374; 97116; 97162; 97530; 99285; C1893; J1630; J1815; J1885; J2405; Q9967